=== PATIENT | female | born 1985 | race American Indian/Alaskan Native ===

== ENCOUNTER 2017-11-16 22:07 | Inpatient (IN) | payer OTHER ==
[2017-11-16] MEDS ORDERED: LACTATED RINGERS 500 ML IV ONE (23:53)
--- NOTE | 2017-11-17 01:07 | Ultrasound Report ---
FINAL REPORT EXAM: US OB FOLLOW UP HISTORY: WELL BEING COMPARISON: None available. TECHNIQUE: Several real-time grayscale and color Doppler images were obtained. FINDINGS: Single live IUP. Estimated gestational age 33 weeks 4 days. Estimated delivery date January 01, 2018. heart rate 146 beats per minute. Estimated weight 2293 grams. BPD 8.3 centimeters 33 weeks 3 days. Head circumference 29.9 centimeters 33 weeks 0 days. Abdominal circumference 30.1 centimeters 34 weeks 0 days. Femoral length 6.6 centimeters 34 weeks 0 days. position cephalic. Placenta location posterior. Cervix is closed. Entire length the cervix not well visualized. Visualized portion of the cervix measures at least 1.6 centimeters in length. There may be a shortened cervix. No placenta previa. Anatomic survey not performed. No gross abnormality demonstrated. Normal CHIVO 18.7 centimeters. IMPRESSION: Single live IUP. Estimated gestational age 33 weeks 4 days. Estimated delivery date January 01, 2018. Cervix not well visualized but appears to be short length measuring 1.6 centimeters on today's exam. No placenta previa. Incompetent cervix is not excluded. Follow-up transvaginal exam may be of benefit for further evaluation of the cervical length. anatomic survey put not performed. No gross abnormality demonstrated.
[2017-11-17] MEDS ORDERED: TYLENOL PO PRN (01:17)
[2017-11-17] MEDS ORDERED: MYLICON PO PRN (01:17)
[2017-11-17] MEDS ORDERED: ZOFRAN IV PRN (01:17)
[2017-11-17] MEDS ORDERED: COLACE PO PRN (01:17)
[2017-11-17] MEDS ORDERED: MAGNESIUM SULFATE 4GM/100ML 4 GM/100 ML BAG IV ONE (01:17)
[2017-11-17] MEDS ORDERED: MILK OF MAGNESIA PO PRN (01:17)
--- NOTE | 2017-11-17 01:22 | History and Physical Report ---
History of Present Illness Date of examination: 11/17/17 Chief complaint: SROM History of present illness: Pt is a 32yo BF EDC 12/26/17; EGA 34 3/7 weeks presents to L&D complaining of SROM clear fluid @ 2245 followed by irregular contractions. She denies bleeding. She received late care at [facility] after transfer from the [facility] at 34 weeks. records are available and GBS is unknown. 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 Social history: no significant social history, - Obstetrical History Expected Date of Delivery: 12/26/17 Actual Gestation: 34 Week(s) 3 Day(s) : 1 Medications and Allergies Allergies Allergy/AdvReac Type Severity Reaction Status Date / Time No Known Allergies Allergy Unverified 11/16/17 23:48 Review of Systems All systems: negative - Physical Exam Breasts: Positive: deferred Cardiovascular: Regular rate Lungs: Positive: Clear to auscultation Abdomen: Positive: normal appearance Genitourinary (Female): Positive: normal external genitalia Vagina: Positive: other (leaking fluid) Uterus: Positive: enlarged Extremities: Positive: normal - Obstetrical FHR: category 1 Uterine Contraction Monitor Mode: External Cervical Dilatation: 3 (per nurse) Cervical Effacement Percentage: 70 (per nurse) station: -2 Uterine Contraction Pattern: Irregular Uterine Tone Measurement Phase: Contraction Uterine Contraction Intensity: Moderate Results Result Diagrams: 11/17/17 00:00 All other labs normal. Ultrasound: report reviewed Assessment and Plan - Patient Problems (1) 34 weeks gestation of Onset Date: 11/17/17 Current Visit: Yes Status: Acute Plan to address problem: A: IUP @ 34 3/7 weeks PPROM - stable PTL - stable P: Admit to L&D for Observation Will begin IV Magnesium sulfate, IV Ampicillin and Steroids NICU consultation (2) premature rupture of membranes (PPROM) with onset of labor after 24 hours of rupture in third trimester, antepartum Onset Date: 11/17/17 Current Visit: Yes Status: Acute
[2017-11-17 01:51] LABS: Basophils % (Auto) 0.2 % (0.0-1.8); Eosinophils % (Auto) 0.1 % (0.0-4.3); Hematocrit 39.7 % (30.3-42.9); Hemoglobin 13.4 gm/dl (10.1-14.3); Lymphocytes # (Auto) 1.4 K/mm3 (1.2-5.4); Lymphocytes % (Auto) 11.1 % (13.4-35.0); Mean Corpuscular HGB Conc 34 % (30-34); Mean Corpuscular Hemoglobin 30 pg (28-32); Mean Corpuscular Volume 89 fl (79-97); Monocytes # (Auto) 1.4 K/mm3 (0.0-0.8); Monocytes % (Auto) 11.9 % (0.0-7.3); Platelet Count 149 K/mm3 (140-440); Red Blood Count 4.48 M/mm3 (3.65-5.03); Red Cell Distribution Width 14.4 % (13.2-15.2)
[2017-11-17] MEDS: POLYCILLIN/NS 2 GM/100 ML 2 GM/100 ML BAG IV SCH ×4 (03:10→23:52)
[2017-11-17] MEDS: CELESTONE SOLUSPAN IM SCH (03:15)
[2017-11-17] MEDS: MAGNESIUM SULFATE 40GM/1000ML 40 GM/1,000 ML BAG IV SCH ×2 (04:17→23:52)
[2017-11-17 04:51] LABS: Bilirubin,Urine NEG (Negative); Blood,Urine NEG (Negative); Color,Urine Yellow (Yellow); Mucus,Urine FEW /HPF; Protein,Urine <15 mg/dL mg/dL (Negative); Urobilinogen,Urine < 2.0 mg/dL (<2.0)
[2017-11-17] MEDS: LACTATED RINGERS 1,000 ML IV SCH (19:12)
[2017-11-17] MEDS: PRENATAL VITAMIN PO SCH (20:09)
[2017-11-18] MEDS: CELESTONE SOLUSPAN IM SCH (03:12)
[2017-11-18] MEDS: POLYCILLIN/NS 2 GM/100 ML 2 GM/100 ML BAG IV SCH (06:10)
--- NOTE | 2017-11-18 09:07 | Progress Note ---
Assessment and Plan - Patient Problems (1) 34 weeks gestation of Onset Date: 11/17/17 Current Visit: Yes Status: Acute Plan to address problem: A: IUP @ 34 4/7 weeks - s/p Steroids PPROM - stable PTL - stable P: Continue present management Obtain APA consultation. (2) premature rupture of membranes (PPROM) with onset of labor after 24 hours of rupture in third trimester, antepartum Onset Date: 11/17/17 Current Visit: Yes Status: Acute Subjective - Subjective Date of service: 11/18/17 Principal diagnosis: IUP @ 34 4/7 weeks; PPROM; PTL Interval history: Pt is a 32yo BF EDC 12/26/17; EGA 34 4/7 weeks presents to L&D complaining of SROM clear fluid followed by irregular contractions. She denies bleeding. She received IV Magnesium sulfate, IV Ampicillin and Steroids and is currently doing well without further contractions. Patient reports: loss of fluid, movement normal, no new complaints, no vaginal bleeding, no contractions Objective - Vital Signs Vital Signs: Vital Signs - 12hr 11/17/17 11/18/17 11/18/17 23:00 01:00 03:15 Temperature 98.2 F 98.4 F 98.2 F Pulse Rate Respiratory 18 18 Rate Blood Pressure Blood Pressure [Right] O2 Sat by Pulse Oximetry 11/18/17 11/18/17 11/18/17 06:26 06:28 08:42 Temperature 98.7 F Pulse Rate 89 86 Respiratory 18 Rate Blood Pressure 117/64 125/74 Blood Pressure [Right] O2 Sat by Pulse Oximetry 11/18/17 11/18/17 08:47 08:48 Temperature 96.9 F L Pulse Rate 86 92 H Respiratory 14 Rate Blood Pressure Blood Pressure 125/74 [Right] O2 Sat by Pulse 98 97 Oximetry - Exam Abdomen: Present: normal appearance, soft Uterus: Present: normal FHR: category 1 Uterine Contraction Monitor Mode: External Uterine Contraction Pattern: Absent - Labs Labs: Abnormal Labs 11/17/17 11/17/17 11/18/17 00:00 21:36 05:07 WBC 12.2 H Lymph % (Auto) 11.1 L [place] % (Auto) 11.9 H [place] # 1.4 H Seg Neutrophils % 76.7 H Seg Neutrophils # 9.4 H Magnesium 6.00 H 6.10 H 08/27/18 07:41 WBC Lymph % (Auto) [place] % (Auto) [place] # Seg Neutrophils % Seg Neutrophils # Magnesium 6.00 H Laboratory Results - last 24 hr 11/17/17 11/18/17 11/18/17 21:36 05:07 07:41 Magnesium 6.00 H 6.10 H 6.00 H
[2017-11-18] MEDS: LACTATED RINGERS 1,000 ML IV SCH ×4 (09:13→21:50)
[2017-11-18] MEDS: PRENATAL VITAMIN PO SCH (09:55)
--- NOTE | 2017-11-18 13:08 | Consultation ---
History of Present Illness Consult date: 11/18/17 Requesting physician: ROYCE QUINONEZ Reason for consult: PROM History of present illness: Thank you for your recent consultation regarding the above named patient. As you are aware, she is an 32 year-old para 0000 at 34 weeks 4 days - gestation for whom I recently provided a perinatology consultation due to premature rupture of membranes. The patient was admitted due to leakage of fluid per vagina. The current history suggest PPROM. Amnisure suggested rupture of membranes. Patient admits to normal movements. PAST OBSTETRICAL HISTORY * NO previous pregnancies. Currently, she also described rare contractions Patient admitted to normal movements. On physical exam she has no apparent objective evidence of in utero infection. See our previous consult and the previous ultrasound reports for details regarding ongoing management. 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 - Obstetrical History : 1 Medications and Allergies Allergies Allergy/AdvReac Type Severity Reaction Status Date / Time No Known Allergies Allergy Unverified 11/16/17 23:48 Home Medications Medication Instructions Recorded Confirmed Last Taken Type Pnv No.95/Ferrous Fum/Folic AC 1 tab PO DAILY 11/17/17 11/17/17 11/17/17 History [ Formula Tablet] Active Meds: Active Medications Acetaminophen (Tylenol) 650 mg PO Q4H PRN PRN Reason: Pain MILD(1-3)/Fever >100.5/HECK Last Admin: 11/17/17 08:26 Dose: 650 mg Docusate Sodium (Colace) 100 mg PO Q12H PRN PRN Reason: Constipation Ampicillin Sodium (Polycillin/Ns 2 Gm/100 Ml) 2 gm in 100 mls @ 100 mls/hr IV Q6H CHARLENE; Protocol Stop: 11/18/17 20:59 Last Admin: 11/18/17 06:10 Dose: 100 mls/hr Lactated Ringer's (Lactated Ringers) 1,000 mls @ 125 mls/hr IV DIRECT CHARLENE Last Admin: 11/18/17 09:13 Dose: 75 mls/hr Magnesium Sulfate (Magnesium Sulfate 40gm/1000ml) 40 gm in 1,000 mls @ 50 mls/ hr IV DIRECT CHARLENE Last Admin: 11/17/17 23:52 Dose: 2 gm/hr, 50 mls/hr Magnesium Hydroxide (Milk Of Magnesia) 30 ml PO QHS PRN PRN Reason: Laxative Effect Multivitamins/Iron/Calcium ( Vitamin) 1 each PO QDAY CHARLENE Last Admin: 11/18/17 09:55 Dose: 1 each Ondansetron HCl (Zofran) 4 mg IV Q6H PRN PRN Reason: Nausea And Vomiting Simethicone (Mylicon) 80 mg PO Q6H PRN PRN Reason: Gas pain - Vital Signs Vital signs: Vital Signs Pulse Pulse Ox 101 H 96 11/17/17 01:24 11/17/17 01:24 Temp Pulse Resp BP Pulse Ox 97.6 F 86 16 110/68 99 11/18/17 12:48 11/18/17 12:49 11/18/17 12:48 11/18/17 12:49 11/18/17 12:48 Results Result Diagrams: 11/17/17 00:00 Abnormal lab results 11/17/17 11/18/17 11/18/17 Range/Units 21:36 05:07 07:41 Magnesium 6.00 H 6.10 H 6.00 H (1.7-2.3) mg/dL All other labs normal. Assessment and Plan ASSESSMENT: * premature rupture of membranes at 34 weeks gestation. * Delivery recommended. SUGGESTED MANAGEMENT PLAN * We recommend Betamethasone x 2 * We recommend Magnesium prophylaxis x 24 hours for neuroprotection. * Antibiotics for latency and delivery * Induction of labor at 34 weeks if undelivered or earlier for obstetrical indication. * Continued admission * Bedrest in left lateral semi-Mcguire position * Assessment of blood pressures and temperature as per floor protocol * Follow status with heart rate monitoring * Repeat CBC PRN to rule out infection * Periodic re-evaluation of amniotic fluid volume * Continuous FHR surveillance when and if patient complains of contractions. * Tocodynametry to rule out uterine activity. * Neonatology should be present if delivery becomes imminent and particular attention should be given to intracranial assessment. * We generally recommend DELIVERY for patients with PPROM at 34 weeks. * Please note: While infants born near term are more likely to suffer complications than term babies,conservatively managed pPROMat this advanced gestational age is not without risks, and there is a low risk of severe acute morbidity and mortality withexpeditious delivery [id number] weeks' gestation. * corticosteroids are generally NOT administered to these women at this gestation to accelerate pulmonary maturity. * Conservative management at 3436 weeks' gestation is associated with an eight- fold increase in amnionitis (16 vs. 2%,p= 0.001) and prolonged maternal hospitalization (5.2 vs. 2.6 days,p= 0.006) without a significant reduction in morbidity related to prematurity. * Thus, the woman with pPROM at 34 weeks is generally best served by expeditious delivery. *As per a reading of the ACOG technical bulletin weve indicated that patients with premature rupture of membranes should generally be delivered by approximate 34 weeks gestation. Please note that a suggested specific timing refers to a more defined timing and should be individualized based on patient criteria. * REFERENCE: Medically indicated late- and early-term deliveries. Committee Opinion No. 560. [place]. Obstet Gynecol 2013;121:13150. Thank you for allowing us to participate in the care of this patient. We look forward to the opportunity to assist in her continued management. If you have any questions, please contact our office at [phone]. Jazz Sales M.D. REFERENCE: Medically indicated late- and early-term deliveries. Committee Opinion No. 560. [place]. Obstet Gynecol 2013;121:31128. REFERENCE: Kirt GJ, Watson RH, Fer ROBERTO. Short-term outcomes of infants born at 35 and 36 weeks gestation: we need to ask more questions. Semin Perinatol. 2006;30:28-33
[2017-11-18] MEDS ORDERED: PHENERGAN PO PRN ×2 (14:06→23:22)
[2017-11-18] MEDS ORDERED: MINERAL OIL PO PRN (14:06)
[2017-11-18] MEDS ORDERED: SUBLIMAZE IV PRN (14:06)
[2017-11-18] MEDS ORDERED: BRETHINE IVP PRN (14:06)
[2017-11-18] MEDS ORDERED: BRETHINE SUB-Q PRN (14:06)
[2017-11-18] MEDS ORDERED: STADOL IV PRN (14:06)
[2017-11-18] MEDS ORDERED: XYLOCAINE 2% INFILTRATI ONE (15:00)
[2017-11-18] MEDS ORDERED: PITOCin/NS 20 UNIT/1000ML DRIP 20 UNITS/1,000 ML BAG IV SCH (15:00)
[2017-11-18] MEDS ORDERED: PITOCin/NS 30 UNIT/500ML 30 UNITS/500 ML BAG IV SCH ×2 (15:00)
[2017-11-18] MEDS: AMPICILLIN/NS 1 GM/50 ML 1 GM/50 ML BAG IV SCH ×2 (17:11→21:22)
[2017-11-18 17:21] LABS: Hematocrit 35.6 % (30.3-42.9); Mean Corpuscular HGB Conc 34 % (30-34); Mean Corpuscular Hemoglobin 30 pg (28-32); Mean Corpuscular Volume 88 fl (79-97); Platelet Count 160 K/mm3 (140-440); Red Blood Count 4.06 M/mm3 (3.65-5.03); Red Cell Distribution Width 14.5 % (13.2-15.2)
[2017-11-18] MEDS ORDERED: BENADRYL IV PRN (20:36)
[2017-11-18] MEDS ORDERED: NUBAIN IV PRN (20:36)
[2017-11-18] MEDS ORDERED: NARCAN 2 MG/2 ML IV PRN (20:36)
[2017-11-18] MEDS ORDERED: fentaNYL-BUPIV 2 MCG/ML-0.125% 200 MCG/100 ML BAG EPIDURAL SCH (21:00)
--- NOTE | 2017-11-18 23:19 | Procedure Note ---
OB Delivery Note - Delivery Date of Delivery: 11/18/17 Surgeon: ROYCE QUINONEZ Estimated blood loss: 300cc - Vaginal Delivery presentation: vertex Delivery position: OA Intrapartum events: labor-<37 weeks, PROM->1hr before delivery Delivery induction: oxytocin Delivery augmentation: pitocin Delivery monitor: external FHT, external uterine Route of delivery: Delivery placenta: spontaneous Delivery cord: 3 umbilical vessels Episiotomy: none Delivery laceration: 1st degree Delivery repair: vicryl Anesthesia: epidural Delivery comments: Infant delivered OA and placed on Mom's chest for [id number] bonding and delayed cord clamping, cut by Sister. Peds/RT in attendance. - Infant A at 1 minute: 8 at 5 minutes: 8 Infant Gender: Male (2289gms)
[2017-11-18] MEDS ORDERED: MILK OF MAGNESIA PO PRN (23:22)
[2017-11-18] MEDS ORDERED: DULCOLAX PR PRN (23:22)
[2017-11-18] MEDS ORDERED: TYLENOL PO PRN (23:22)
[2017-11-18] MEDS ORDERED: TUCKS PAD TP PRN (23:22)
[2017-11-18] MEDS ORDERED: LANSINOH TP PRN (23:22)
[2017-11-18] MEDS ORDERED: ZOFRAN IV PRN (23:22)
[2017-11-18] MEDS ORDERED: BENADRYL PO PRN (23:22)
[2017-11-18] MEDS ORDERED: PHENERGAN PR PRN (23:22)
[2017-11-18] MEDS ORDERED: SODIUM CHLORIDE FLUSH SYRINGE 10 ML IV NR (23:45)
[2017-11-19] MEDS: MOTRIN PO SCH ×4 (01:06→23:59)
[2017-11-19] MEDS ORDERED: BOOSTRIX IM ONE (01:29)
--- NOTE | 2017-11-19 08:10 | Progress Note ---
Assessment and Plan - Patient Problems (1) 34 weeks gestation of Onset Date: 11/17/17 Current Visit: Yes Status: Resolved (2) premature rupture of membranes (PPROM) with onset of labor after 24 hours of rupture in third trimester, antepartum Onset Date: 11/17/17 Current Visit: Yes Status: Resolved (3) (normal spontaneous vaginal delivery) Onset Date: 11/19/17 Current Visit: Yes Status: Resolved Plan to address problem: A: S/P - PPD #1 Doing well P: May go home tomorrow Subjective - Subjective Date of service: 11/19/17 Principal diagnosis: s/p - PPD #1 Interval history: Pt is feeling well without complaints. Bleeding improved. Patient reports: appetite normal, voiding normally, pain well controlled, flatus , ambulating normally, no dizzy ambulation, no nauseated [place]: doing well, in NICU Objective - Vital Signs Latest vital signs: Vital Signs Temp Pulse Resp BP BP Pulse Ox 11/19/17 01:05 99.2 F 98 H 20 113/60 11/19/17 00:04 82 100 11/19/17 00:03 76 107/61 11/18/17 23:59 82 98 11/18/17 23:54 85 99 11/18/17 23:49 86 97 11/18/17 23:48 85 114/62 11/18/17 23:44 89 99 11/18/17 23:39 95 H 100 11/18/17 23:34 84 99 11/18/17 23:33 77 111/69 11/18/17 23:29 83 98 11/18/17 23:24 86 98 11/18/17 23:19 91 H 98 11/18/17 23:18 93 H 113/60 11/18/17 23:14 94 H 98 11/18/17 23:09 88 99 11/18/17 23:04 91 H 100 11/18/17 22:59 89 98 11/18/17 22:57 87 86 11/18/17 22:54 95 H 100 11/18/17 22:49 94 H 130/68 100 11/18/17 22:44 95 H 100 11/18/17 22:39 94 H 100 11/18/17 22:35 89 145/59 11/18/17 22:34 89 100 11/18/17 22:29 86 100 11/18/17 22:24 86 100 11/18/17 22:20 88 174/65 11/18/17 22:19 86 100 11/18/17 22:14 84 100 11/18/17 22:09 79 100 11/18/17 22:03 82 100 11/18/17 21:58 80 100 11/18/17 21:53 81 100 11/18/17 21:49 80 107/59 11/18/17 21:48 82 100 11/18/17 21:45 89 90 11/18/17 21:43 84 100 11/18/17 21:38 84 100 11/18/17 21:34 87 109/55 11/18/17 21:33 85 100 11/18/17 21:28 90 100 11/18/17 21:23 87 100 11/18/17 21:18 99 H 112/62 100 11/18/17 21:16 96 H 111/58 11/18/17 21:13 92 H 100 11/18/17 21:10 99 H 124/59 11/18/17 21:08 96 H 100 11/18/17 21:07 90 121/61 11/18/17 21:05 97 H 120/62 11/18/17 21:04 95 H 118/59 11/18/17 21:03 95 H 100 11/18/17 21:01 90 138/60 11/18/17 20:59 95 H 125/57 11/18/17 20:58 97 H 120/60 100 11/18/17 20:57 63 L 11/18/17 20:55 108 H 126/73 11/18/17 20:53 102 H 127/72 100 11/18/17 20:51 110 H 124/79 11/18/17 20:49 96 H 128/83 11/18/17 20:48 98 H 100 11/18/17 20:43 101 H 100 11/18/17 20:38 97 H 100 11/18/17 20:33 93 H 100 11/18/17 20:28 88 99 11/18/17 20:23 86 100 11/18/17 20:22 88 109/55 11/18/17 20:18 92 H 100 11/18/17 20:13 92 H 99 11/18/17 20:08 95 H 100 11/18/17 20:03 99 H 99 11/18/17 20:00 97.7 F 22 11/18/17 19:58 102 H 100 11/18/17 19:53 96 H 99 11/18/17 19:48 98 H 100 11/18/17 19:43 92 H 100 11/18/17 12:49 86 110/68 11/18/17 12:48 97.6 F 86 16 110/68 99 11/18/17 08:48 92 H 97 11/18/17 08:47 96.9 F L 86 14 125/74 98 11/18/17 08:42 86 125/74 Intake and Output 11/18/17 11/19/17 11/19/17 22:59 06:59 14:59 Intake Total 329.433 Output Total 800 600 Balance -470.567 -600 Intake: IV 329.433 AMPICILLIN/NS 1 GM/50 ML 50 1 gm In 50 ml @ 100 mls/ hr IV Q4H CHARLENE Rx#: [id number] Lactated Ringers 1,000 ml 262.500 @ 125 mls/hr IV DIRECT CHARLENE Rx#:[id number] PITOCin/NS 30 UNIT/500ML 16.933 30 units In 500 ml @ 4 mls/hr IV TITR CHARLENE Rx#: [id number] Output: Urine 800 600 Indwelling Catheter 800 Void 600 Other: Total, Output Amount 800 600 Estimated Blood Loss 300 - Exam Breasts: Present: deferred Cardiovascular: Present: Regular rate Lungs: Present: Clear to auscultation Abdomen: Present: normal appearance, soft Uterus: Present: normal, firm, fundal height below umbilicus Extremities: Present: normal - Labs Labs: Abnormal lab results 11/18/17 11/18/17 11/18/17 Range/Units 07:41 13:29 16:53 WBC 13.3 H (4.5-11.0) K/mm3 Magnesium 6.00 H 6.20 H (1.7-2.3) mg/dL Laboratory Tests 11/17/17 11/17/17 11/17/17 00:00 00:00 04:30 WBC 12.2 H RBC 4.48 Hgb 13.4 Hct 39.7 MCV 89 MCH 30 MCHC 34 RDW 14.4 Plt Count 149 Lymph % (Auto) 11.1 L [place] % (Auto) 11.9 H Eos % (Auto) 0.1 Baso % (Auto) 0.2 Lymph # 1.4 [place] # 1.4 H Eos # 0.0 Baso # 0.0 Seg Neutrophils % 76.7 H Seg Neutrophils # 9.4 H Magnesium Urine Color Yellow Urine Turbidity Slightly-cloudy Urine pH 5.0 Ur Specific [place] 1.023 Urine Protein <15 mg/dl Urine Glucose (UA) Neg Urine Ketones 80 Urine Blood Neg Urine Nitrite Neg Urine Bilirubin Neg Urine Urobilinogen < 2.0 Ur Leukocyte Esterase Neg Urine WBC (Auto) 1.0 Urine RBC (Auto) 1.0 U Epithel Cells (Auto) 2.0 Urine Mucus Few Blood Type A POSITIVE Antibody Screen Negative 11/17/17 11/18/17 11/18/17 21:36 05:07 07:41 WBC RBC Hgb Hct MCV MCH MCHC RDW Plt Count Lymph % (Auto) [place] % (Auto) Eos % (Auto) Baso % (Auto) Lymph # [place] # Eos # Baso # Seg Neutrophils % Seg Neutrophils # Magnesium 6.00 H 6.10 H 6.00 H Urine Color Urine Turbidity Urine pH Ur Specific [place] Urine Protein Urine Glucose (UA) Urine Ketones Urine Blood Urine Nitrite Urine Bilirubin Urine Urobilinogen Ur Leukocyte Esterase Urine WBC (Auto) Urine RBC (Auto) U Epithel Cells (Auto) Urine Mucus Blood Type Antibody Screen 11/18/17 11/18/17 11/19/17 13:29 16:53 11:44 WBC 13.3 H RBC 4.06 Hgb 12.0 11.1 Hct 35.6 32.1 MCV 88 MCH 30 MCHC 34 RDW 14.5 Plt Count 160 Lymph % (Auto) [place] % (Auto) Eos % (Auto) Baso % (Auto) Lymph # [place] # Eos # Baso # Seg Neutrophils % Seg Neutrophils # Magnesium 6.20 H Urine Color Urine Turbidity Urine pH Ur Specific [place] Urine Protein Urine Glucose (UA) Urine Ketones Urine Blood Urine Nitrite Urine Bilirubin Urine Urobilinogen Ur Leukocyte Esterase Urine WBC (Auto) Urine RBC (Auto) U Epithel Cells (Auto) Urine Mucus Blood Type Antibody Screen
--- NOTE | 2017-11-19 09:59 | Discharge Summary ---
Providers - Providers Date of Admission: 11/17/17 01:30 Date of discharge: 11/20/17 Attending physician: ROYCE QUINONEZ 11/17/17 15:34 Consult to Physician [CONS] Urgent Comment: Consulting Provider: SETH TA Physician Instructions: Reason For Exam: IUP @ 34 3/7 weeks; PPROM 11/18/17 09:35 Consult to Physician [CONS] Urgent Comment: Consulting Provider: JOSETTE MORALES Physician Instructions: Reason For Exam: IUP @ 34 4/7 weeks; PPROM Primary care physician: ROYCE QUINONEZ Hospitalization Reason for admission: IUP - , observation, labor, rupture of membranes Delivery: Episiotomy: none Laceration: 1st degree Other procedures: none complications: none Discharge diagnosis: delivery baby: male Hospital course: Pt is a 32yo BF EDC 12/26/17; EGA 34 4/7 weeks who presented to L&D complaining of SROM clear fluid followed by irregular contractions. She received IV Magnesium sulfate, IV Ampicillin and Steroids and then labor was augmented per APA's recommendations. She subsequently delivered a 5lb male who is currently in the NICU. course was uneventful, and she will therefore be discharged to home on PPD #2 in stable condition. Condition at discharge: Good Disposition: DC-01 TO HOME OR SELFCARE - Discharge Diagnoses (1) 34 weeks gestation of Status: Resolved (2) premature rupture of membranes (PPROM) with onset of labor after 24 hours of rupture in third trimester, antepartum Status: Resolved (3) (normal spontaneous vaginal delivery) Status: Resolved Plan - Discharge Medications Prescriptions: Ibuprofen [Motrin 600 MG tab] 600 mg PO Q6H #30 tablet Vit-Fe Fumar-FA [ Vitamin] 1 each PO QDAY #30 tablet - Provider Discharge Summary Activity: routine, no sex for 6 weeks, no heavy lifting 4 weeks, no strenuous exercise Diet: routine Instructions: routine Additional instructions: [] Smoking cessation referral if applicable(refer to patient education folder for contact #) [] Refer to [facility] Booklet Call your doctor immediately for: * Fever > 100.5 * Heavy vaginal bleeding ( >1 pad per hour) * Severe persistent headache * Shortness of breath * Reddened, hot, painful area to leg or breast * Drainage or odor from incision. * Keep incision clean and dry at all times and follow doctor's instructions regarding bathing/showering - Follow up plan Follow up: ROYCE QUINONEZ MD [Primary Care Provider] - 6 Weeks
[2017-11-19 12:25] LABS: Hematocrit 32.1 % (30.3-42.9); Hemoglobin 11.1 gm/dl (10.1-14.3)
[2017-11-20] MEDS: MOTRIN PO SCH (05:02)
[2017-11-20 18:30] VITALS: BP 138/77
== END 2017-11-20 18:25 | disposition home or self-care (01) | DRG 775 ==
LOC: TRG 22:07 → LD 11-17 01:30 → OB 11-19 00:36
PROVIDERS: ADMIT Obstetrics & Gynecology; ATTEND Obstetrics & Gynecology
PROC: 10E0XZZ Delivery of Products of Conception, External Approach (ICD-10-PCS; principal; 2017-11-18)
PROC: 3E033VJ Introduction of Other Hormone into Peripheral Vein, Percutaneous Approach (ICD-10-PCS; 2017-11-18)
PROC: 3E0R3BZ Introduction of Anesthetic Agent into Spinal Canal, Percutaneous Approach (ICD-10-PCS; 2017-11-18)
PROC: 00HU33Z Insertion of Infusion Device into Spinal Canal, Percutaneous Approach (ICD-10-PCS; 2017-11-18)
PROC: 0HQ9XZZ Repair Perineum Skin, External Approach (ICD-10-PCS; 2017-11-18)
DX: O60.14X0 Preterm labor third trimester with preterm delivery third trimester, not applicable or unspecified (principal); O42.913 Preterm premature rupture of membranes, unspecified as to length of time between rupture and onset of labor, third trimester; O70.0 First degree perineal laceration during delivery; O62.2 Other uterine inertia; Z3A.34 34 weeks gestation of pregnancy; Z37.0 Single live birth
CPT/HCPCS: 36415; 76816; 81001; 83735; 85014; 85018; 85025; 85027; 86850; 86900; 86901; 88307; 90471; 90715; 99211; G0463; J0290; J0595; J0702; J2590; J3475; J7120